=== PATIENT | female | born 1995 | race Asian ===

== ENCOUNTER 2018-01-04 17:49 | Emergency (ER) | payer OTHER ==
[~2018-01-04] VITALS: Ht 160 cm; Wt 77.1 kg
[2018-01-04 17:55] VITALS: Ht 160 cm; Wt 77.1 kg
[2018-01-04 20:47] VITALS: BP 130/95
== END 2018-01-04 20:47 | disposition home or self-care (01) ==
LOC: ED 17:49
DX: S82.401A Unspecified fracture of shaft of right fibula, initial encounter for closed fracture (principal); W22.8XXA Striking against or struck by other objects, initial encounter; Y93.89 Activity, other specified; Y92.89 Other specified places as the place of occurrence of the external cause; Y99.8 Other external cause status
CPT/HCPCS: Q0092